=== PATIENT | female | born 1970 | race Caucasian/White ===

== ENCOUNTER 2017-09-27 11:22 | Emergency (ER) | payer SELFPAY ==
[2017-09-27 11:24] VITALS: BP 143/79; PULSE 77; RESP 16; TEMP 98.9; O2SAT 99
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
== END 2017-09-27 13:56 | disposition home or self-care (01) ==
LOC: NEPD 11:22
DX: F41.9 Anxiety disorder, unspecified (principal)
CPT/HCPCS: 99283